=== PATIENT | female | born 1990 | race American Indian/Alaskan Native ===

== ENCOUNTER 2017-10-12 10:41 | Emergency (ER) | payer OTHER ==
[2017-10-12 11:00] VITALS: BP 110/65; PULSE 94; TEMP 97.8; BMI 21.4
[2017-10-12] MEDS ORDERED: KETOROLAC TROMETHAMINE 60 MG/2 ML VIAL IM ONE (11:37)
[2017-10-12] MEDS ORDERED: RANITIDINE HCL 150 MG TABLET (FP) PO ONE (11:37)
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
[2017-10-12] MEDS ORDERED: KETOROLAC TROMETHAMINE 60 MG/2 ML VIAL ONE (11:41)
[2017-10-12] MEDS ORDERED: RANITIDINE HCL 150 MG TABLET (FP) ONE (11:42)
== END 2017-10-12 12:40 | disposition home or self-care (01) ==
LOC: JERFT 10:41
PROC: 3E0233Z Introduction of Anti-inflammatory into Muscle, Percutaneous Approach (ICD-10-PCS; principal; 2017-10-12)
DX: S16.1XXA Strain of muscle, fascia and tendon at neck level, initial encounter (principal); S60.222A Contusion of left hand, initial encounter; V47.6XXA Car passenger injured in collision with fixed or stationary object in traffic accident, initial encounter; W22.19XA Striking against or struck by other automobile airbag, initial encounter; Y92.488 Other paved roadways as the place of occurrence of the external cause; Y93.89 Activity, other specified; Y99.8 Other external cause status
CPT/HCPCS: 73130-TC-LR-FY; 99281-25